=== PATIENT | male | born 1995 | race Caucasian/White ===

== ENCOUNTER 2018-03-13 14:16 | Emergency (ER) | payer OTHER ==
[2018-03-13 14:25] VITALS: RESP 16
[2018-03-13] MEDS ORDERED: Sodium Chloride 0.9% 1,000 ML IV STA (15:19)
--- NOTE | 2018-03-13 15:42 | RAD ---
Date of service: 03/13/2018 HISTORY: chest pain COMPARISON: No prior. TECHNIQUE: Chest PA and lateral FINDINGS: LUNGS: No active pulmonary disease. PLEURA: No significant pleural effusion identified. No pneumothorax apparent. CARDIOVASCULAR: Normal. OSSEOUS STRUCTURES: No significant abnormalities. VISUALIZED UPPER ABDOMEN: Normal. OTHER FINDINGS: None. IMPRESSION: No active disease.
--- NOTE | 2018-03-13 15:43 | ED PDOC ---
HPI: Chest Pain Time Seen by Provider: 03/13/18 15:02 Chief Complaint (Nursing): Chest Pain Chief Complaint (Provider): Chest Pain History Per: Patient History/Exam Limitations: no limitations Onset/Duration Of Symptoms: Days (x3) Current Symptoms Are (Timing): Still Present Additional Complaint(s): 22 year old male, with no past medical history, presents to the ED complaining of constant left sided chest pain since . Patient reports pain is pleuritic and worse with deep breaths, coughs and when he lies down. He reports mild dyspnea on exertion. He states about a week ago, he had URI symptoms including cough, mild productive sputum, sore throat, and subjective fever for which he took over the counter cough and antipyretic medications and a course of azithromycin. Most of the symptoms have resolved however chest pain now occurs. Patient reports he feels he had a subjective fever yesterday. He reports he has chest and upper abdomen pain radiating to his back. Denies leg swelling, recent travel, or known sick contacts. PMD: none Past Medical History Reviewed: Historical Data, Nursing Documentation, Vital Signs Vital Signs: Last Vital Signs Temp 98.3 F 03/13/18 14:23 Pulse 85 03/13/18 14:23 Resp 16 03/13/18 14:23 BP 123/82 03/13/18 14:23 Pulse Ox 99 03/13/18 14:23 - Medical History PMH: No Chronic Diseases - Surgical History Surgical History: No Surg Hx - Family History Family History: States: No Known Family Hx - Social History Current smoker - smoking cessation education provided: No Alcohol: None Drugs: Denies - Home Medications Home Medications: Ambulatory Orders Medication Instructions Recorded Ibuprofen [Motrin Tab] 600 mg PO Q8 PRN #30 tab 03/13/18 - Allergies Allergies/Adverse Reactions: Allergies Allergy/AdvReac Type Severity Reaction Status Date / Time No Known Allergies Allergy Verified 03/13/18 14:23 Review of Systems ROS Statement: Except As Marked, All Systems Reviewed And Found Negative (as per HPI) Constitutional: Negative for: Fever ENT: Negative for: Throat Pain Cardiovascular: Positive for: Chest Pain Respiratory: Positive for: Other (Dyspnea on exertion). Negative for: Cough Gastrointestinal: Positive for: Abdominal Pain (upper ) Musculoskeletal: Positive for: Back Pain. Negative for: Other (Leg swelling) Physical Exam - Reviewed Nursing Documentation Reviewed: Yes Vital Signs Reviewed: Yes - Physical Exam Appears: Positive for: Well, No Acute Distress Head Exam: Positive for: ATRAUMATIC, NORMOCEPHALIC Skin: Positive for: Warm, Dry Eye Exam: Positive for: EOMI, PERRL ENT: Positive for: Pharynx Is (clear). Negative for: Pharyngeal Erythema, Tonsillar Exudate Neck: Positive for: Painless ROM, Supple Cardiovascular/Chest: Positive for: Regular Rate, Rhythm, Other (Reproducable chest pain on left upper chest wall). Negative for: Murmur Respiratory: Positive for: Normal Breath Sounds. Negative for: Rales, Rhonchi, Wheezing, Respiratory Distress Gastrointestinal/Abdominal: Positive for: Soft. Negative for: Tenderness Back: Positive for: Normal Inspection. Negative for: Decreased ROM Extremity: Positive for: Normal ROM. Negative for: Deformity Lymphatic: Negative for: Adenopathy Neurologic/Psych: Positive for: Alert. Negative for: Motor/Sensory Deficits - Laboratory Results Result Diagrams: 03/13/18 15:54 03/13/18 15:54 - ECG ECG Rhythm: Positive for: Normal QRS, Normal ST Segment, Sinus Rhythm (normal) Rate: 82 O2 Sat by Pulse Oximetry: 99 (RA) Pulse Ox Interpretation: Normal Medical Decision Making Medical Decision Making: Initial Impression: Chest pain; differentials include but not limited to costochondritis, pneumothorax, pneumonia, myocarditis, flu Initial Plan: --Type and screen --ECG --CMP --Creatine phosphokinase --Lipase stat --Magnesium stat --Phosphorous stat --B-type natriuretic peptide --Troponin stat --ED urine dipstick --CBC --D Dimer --Erythrocyte sediment rate --Partial thromboplastin --Chest X-ray --Sodium chloride 1000mL IV --Blood culture --Rapid strep group --Influenza A B stat 1700 Labs with no emergently significant abnormalities. DW pt findings. NSAIDs and f/u clinic this week. -- Scribe Attestation: Documented by Rad Sanz acting as a scribe for Barbie Bower MD. Provider Scribe Attestation: All medical record entries made by the Scribe were at my direction and personally dictated by me. I have reviewed the chart and agree that the record accurately reflects my personal performance of the history, physical exam, medical decision making, and the department course for this patient. I have also personally directed, reviewed, and agree with the discharge instructions and disposition. Disposition - Clinical Impression Clinical Impression: Costochondritis Counseled Patient/Family Regarding: Studies Performed, Diagnosis, Need For Followup, Rx Given - Disposition Referrals: [facility] [Outside] Disposition: Routine/Home Disposition Time: 17:00 Condition: STABLE Prescriptions: Ibuprofen [Motrin Tab] 600 mg PO Q8 PRN #30 tab PRN Reason: Pain, Moderate (4-7) Instructions: Costochondritis (DC)
[2018-03-13 16:02] LABS: BASO % 0.2 % (0.0-2.0); EOS # 0.1 K/uL (0.0-0.7); EOS % 0.9 % (0.0-4.0); HEMOGLOBIN 15.5 g/dL (12.0-18.0); LYMPH # 1.9 K/uL (1.0-4.3); LYMPH % 22.5 % (20.0-40.0); MEAN CELL VOLUME 84.2 fl (80.0-94.0); MEAN CORPUSCULAR HEMOGLOBIN 28.6 pg (27.0-31.0); MEAN PLATELET VOLUME 8.7 fl (7.2-11.7); MONO # 0.9 K/uL (0.0-0.8); NEUT # 5.6 K/uL (1.8-7.0); NEUT % 65.4 % (50.0-75.0); RBC 5.42 Mil/uL (4.40-5.90); RED CELL DISTRIBUTION WIDTH 13.9 % (11.5-14.5); WHITE BLOOD COUNT 8.5 K/uL (4.8-10.8)
[2018-03-13 16:09] LABS: INR 1.1; PROTHROMBIN TIME 12.2 Seconds (9.8-13.1)
[2018-03-13 16:12] LABS: PARTIAL THROMBOPLASTIN TIME 30.5 Seconds (25.6-37.1)
[2018-03-13 16:13] LABS: ALB/GLOB RATIO 1.2 (1.0-2.1); ALBUMIN 4.5 g/dL (3.5-5.0); ALT/SGPT 57 U/L (21-72); AST/SGOT 45 U/L (17-59); BLOOD UREA NITROGEN 7 mg/dl (9-20); CALCIUM 10.1 mg/dL (8.4-10.2); GFR NON-AFRICAN AMERICAN > 60; LIPASE 70 U/L (23-300)
[2018-03-13 16:14] LABS: D DIMER < 200 ng/mlDDU (0-230)
[2018-03-13 16:24] LABS: B-TYPE NATRIURETIC PEPTIDE 13.4 pg/ml (0-450)
[2018-03-13 18:00] VITALS: BP 121/83; PULSE 67; TEMP 98.7; O2SAT 97
--- NOTE | 2018-03-14 08:02 | CARD ---
APPROVED REPORT Date of service: 03/13/2018 EKG Measurement Heart [id number] <Conclusion> Normal sinus rhythm Normal ECG
== END 2018-03-13 17:58 | disposition home or self-care (01) ==
LOC: H.ER 14:16
DX: M94.0 Chondrocostal junction syndrome [Tietze] (principal); R10.9 Unspecified abdominal pain
CPT/HCPCS: 71046; 80053; 82550; 83690; 83735; 83880; 84100; 84484; 85025; 85378; 85610; 85651; 85730; 86850; 86900; 87040; 87070; 87430; 87804; 93005; 99283; J1885; J7030